=== PATIENT | male | born 1990 | race Caucasian/White ===

== ENCOUNTER 2019-01-08 06:02 | Emergency (ER) | payer MEDICAID, OTHER ==
[~2019-01-08] VITALS: Ht 170.2 cm; Wt 91.0 kg
[2019-01-08] MEDS ORDERED: IPRATROPIUM/ALBUTEROL 0.5-3(2.5)MG/3ML NEB HHN ONE (06:30)
[2019-01-08] MEDS ORDERED: PREDNISONE 20MG TABLET PO ONE (07:00)
[2019-01-08 07:26] VITALS: BP 133/79
== END 2019-01-08 07:33 | disposition home or self-care (01) ==
LOC: ER 06:17
DX: J45.909 Unspecified asthma, uncomplicated (principal)
CPT/HCPCS: 71045; 94640; 99283; J7512; J7620; Z7610